=== PATIENT | male | born 1985 | race African-American/Black ===

== ENCOUNTER 2018-01-02 22:03 | Emergency (ER) | payer SELFPAY ==
[~2018-01-02] VITALS: Ht 172.7 cm; Wt 66.0 kg
[2018-01-03] MEDS ORDERED: TETANUS, DIPHTHERIA, PERTUSSIS VAC/PF 0.5ML (>7YR OLD) IM ONE (02:45)
[2018-01-03] MEDS ORDERED: LIDOCAINE HCL 1% 20ML VIAL (Pyxis) INJ MC ONE (02:45)
[2018-01-03] MEDS ORDERED: BACITRACIN ZINC OINT UDPKT TOP ONE (02:45)
[2018-01-03 05:15] VITALS: BP 110/66
== END 2018-01-03 05:48 | disposition home or self-care (01) ==
LOC: ER 22:03
DX: S61.411A Laceration without foreign body of right hand, initial encounter (principal); W25.XXXA Contact with sharp glass, initial encounter; Y93.89 Activity, other specified; Y92.89 Other specified places as the place of occurrence of the external cause; Y99.8 Other external cause status
CPT/HCPCS: 12001; 73130; 99284; J3490; X7700; Z7610

== ENCOUNTER 2018-01-07 13:32 | Emergency (ER) | payer SELFPAY ==
[~2018-01-07] VITALS: Ht 172.7 cm; Wt 68.0 kg
[2018-01-07 13:47] VITALS: BP 117/70
== END 2018-01-07 16:00 | disposition home or self-care (01) ==
LOC: ER 14:47
DX: Z48.00 Encounter for change or removal of nonsurgical wound dressing (principal)
CPT/HCPCS: 99281

== ENCOUNTER 2018-01-14 01:16 | Emergency (ER) | payer SELFPAY ==
[~2018-01-14] VITALS: Ht 175.3 cm; Wt 65.0 kg
[2018-01-14 07:45] VITALS: BP 106/64
== END 2018-01-14 07:55 | disposition home or self-care (01) ==
LOC: ER 01:16
DX: L03.113 Cellulitis of right upper limb (principal)
CPT/HCPCS: 99283; Z7610

== ENCOUNTER 2021-06-20 12:13 | Emergency (ER) | payer MEDICAID ==
[~2021-06-20] VITALS: Ht 182.9 cm; Wt 70.0 kg
[2021-06-20 12:36] VITALS: BP 104/71
== END 2021-06-20 14:38 | disposition left against medical advice (07) ==
LOC: ER 12:13
DX: Z53.21 Procedure and treatment not carried out due to patient leaving prior to being seen by health care provider (principal)